=== PATIENT | male | born 1985 | race Caucasian/White ===

== ENCOUNTER 2023-10-28 17:24 | Inpatient (IN) | payer MEDICARE, OTHER ==
[~2023-10-28] VITALS: Ht 167.6 cm; Wt 95.3 kg
[2023-10-28 18:18] LABS: BASOPHILS # (AUTO) 0.3 K/uL (0.0-0.2); HEMATOCRIT 40 % (39-51); HEMOGLOBIN 13.8 g/dL (13.5-17.5); LYMPHOCYTES # (AUTO) 1.7 K/uL (0.8-4.8); MEAN CORPUSCULAR HEMOGLOBIN 27 PG (26.0-33.0); MEAN CORPUSCULAR HGB CONC 35 g/dl (31.0-36.0); MEAN CORPUSCULAR VOLUME 76 fL (80-96); MONOCYTES # (AUTO) 0.5 K/uL (0.1-1.30); MONOCYTES % (AUTO) 8.1 % (2.0-12.0); NEUTROPHILS # (AUTO) 4.1 K/uL (1.8-8.9); NEUTROPHILS % (AUTO) 60.7 % (43.0-81.0); PLATELET COUNT (AUTO) 241 K/uL (150-450); RED BLOOD CELL COUNT(AUTO) 5.19 MIL/uL (4.5-6.0); RED CELL DISTRIBUTION WIDTH 14.8 % (11.5-15.0); WHITE BLOOD COUNT (AUTO) 6.7 K/uL (4.3-11.0)
[2023-10-28 18:20] LABS: BASOPHILS % (AUTO) 5.2 % (0.0-2.0)
[2023-10-28] MEDS ORDERED: LORAZEPAM 1 MG TABLET ONE (18:32)
[2023-10-28] MEDS: LORAZEPAM 1 MG TABLET PO ONE (18:35)
[2023-10-28 18:40] LABS: ACETAMINOPHEN 0 ug/ml (10-30); ALANINE AMINOTRANSFERASE 30 U/L (12-78); ALBUMIN 3.6 g/dL (3.4-5.0); ALCOHOL, BLOOD < 3 mg/dL (0-10); ALKALINE PHOSPHATASE 52 U/L (46-116); ASPARTATE AMINOTRANSFERASE 15 U/L (15-37); BILIRUBIN,DIRECT 0.1 mg/dL (0.0-0.2); BILIRUBIN,TOTAL 0.2 mg/dL (0.2-1.0); CARBON DIOXIDE 24 mmol/L (21-32); CHLORIDE 104 mmol/L (98-107); CREATININE 1.1 mg/dL (0.6-1.3); GLUCOSE 144 mg/dL (74-106); SALICYLATE 1.1 mg/dL (2.8-20.0); SODIUM SERUM 136 mmol/L (136-145); TOTAL PROTEIN, SERUM 7.5 g/dL (6.4-8.2); UREA NITROGEN, BLOOD 12 mg/dL (7-18)
[2023-10-28] MEDS ORDERED: HYDR25CA PO (18:49)
[2023-10-28] MEDS ORDERED: DIVA250T4 PO (18:49)
[2023-10-28] MEDS ORDERED: METO50TA16 PO (18:49)
[2023-10-28] MEDS ORDERED: MAGN400O6 PO (18:49)
[2023-10-28] MEDS ORDERED: ACET325T53 PO (18:49)
[2023-10-28] MEDS ORDERED: ALBU18HF2 IH (18:49)
[2023-10-28] MEDS ORDERED: NA P133E RC (18:49)
[2023-10-28] MEDS ORDERED: BIMA2.5D5 EACHEYE (18:49)
[2023-10-28] MEDS ORDERED: BISA10SU11 RC (18:49)
[2023-10-28] MEDS ORDERED: CLOZ200T24 PO (18:49)
[2023-10-28 18:51] LABS: NT-PRO BNP 24 pg/mL (0-125)
[2023-10-28 19:09] LABS: INR 1.12 (0.91-1.10); PARTIAL THROMBOPLASTIN TIME 28.5 SEC (24.3-34.3); PROTHROMBIN TIME 11.8 SECS (9.2-11.1)
[2023-10-28 20:07] LABS: APPEARANCE,URINE CLEAR (CLEAR); BILIRUBIN,URINE NEGATIVE (NEGATIVE); BLOOD, URINE NEGATIVE Ery/uL (NEGATIVE); COLOR,URINE YELLOW (YELLOW); KETONES,URINE NEGATIVE (NEGATIVE); LEUKOCYTE ESTERASE ,URINE NEGATIVE (NEGATIVE); NITRITE, URINE NEGATIVE (NEGATIVE); PROTEIN,URINE NEGATIVE (NEGATIVE); UGLUCOSE NEGATIVE (NEGATIVE); UROBILINOGEN,URINE 0.2 EU/dL (0.2)
[2023-10-28 20:39] LABS: AMPHETAMINE, URINE NEGATIVE (NEGATIVE); BARBITURATE, URINE NEGATIVE (NEGATIVE); BENZODIAZEPINE, URINE NEGATIVE (NEGATIVE); CANNABINOID, URINE NEGATIVE (NEGATIVE); COCCAINE, URINE NEGATIVE (NEGATIVE); OPIATE, URINE NEGATIVE (NEGATIVE); PHENCYCLIDINE SCREEN,URINE NEGATIVE (NEGATIVE)
[2023-10-28] MEDS ORDERED: MORPHINE SULFATE INJ 2 MG/ML DISP.SYRIN IV PRN (22:30)
[2023-10-28] MEDS ORDERED: ACETAMINOPHEN 325 MG TABLET PO PRN (22:30)
[2023-10-28] MEDS ORDERED: ONDANSETRON HCL/PF 4 MG/2 ML VIAL IVP PRN (22:30)
[2023-10-28] MEDS ORDERED: ALBUTEROL FS 2.5 MG/0.5 ML VIAL.NEB NEB PRN (22:30)
[2023-10-29] MEDS ORDERED: IPRATROPIUM/ALBUTEROL INHALER IH SCH
[2023-10-29 06:55] LABS: ALBUMIN 3.2 g/dL (3.4-5.0); BILIRUBIN,TOTAL 0.3 mg/dL (0.2-1.0); MAGNESIUM 2.1 mg/dL (1.8-2.4); PHOSPHORUS 4.4 mg/dL (2.5-4.9); TOTAL PROTEIN, SERUM 6.9 g/dL (6.4-8.2)
[2023-10-29 06:59] LABS: HEMATOCRIT 38 % (39-51); HEMOGLOBIN 13.5 g/dL (13.5-17.5); LYMPHOCYTES % (AUTO) 44.1 % (20.0-44.0); MEAN CORPUSCULAR HEMOGLOBIN 27 PG (26.0-33.0); MEAN CORPUSCULAR HGB CONC 35 g/dl (31.0-36.0); MEAN CORPUSCULAR VOLUME 78 fL (80-96); MONOCYTES # (AUTO) 0.6 K/uL (0.1-1.30); MONOCYTES % (AUTO) 8.6 % (2.0-12.0); NEUTROPHILS # (AUTO) 3.2 K/uL (1.8-8.9); NEUTROPHILS % (AUTO) 47.3 % (43.0-81.0); PLATELET COUNT (AUTO) 227 K/uL (150-450); RED BLOOD CELL COUNT(AUTO) 4.94 MIL/uL (4.5-6.0); RED CELL DISTRIBUTION WIDTH 14.5 % (11.5-15.0); WHITE BLOOD COUNT (AUTO) 6.8 K/uL (4.3-11.0)
[2023-10-29 08:00] VITALS: BP 128/67; TEMP 97.9; O2SAT 100
[2023-10-29] MEDS: DOCUSATE SODIUM LIQ 100 MG/10 ML UDC PO SCH (09:16)
[2023-10-29] MEDS: POLYETHYLENE GLYCOL 3350 17 GM POWD.PACK PO SCH (09:16)
[2023-10-29] MEDS: METOPROLOL TARTRATE 50 MG TABLET PO SCH (09:17)
[2023-10-29] MEDS: hydrOXYzine PAMOATE 25 MG CAPSULE PO SCH (09:18)
[2023-10-29] MEDS: DIVALPROEX SODIUM 250 MG TABLET.DR PO SCH (09:18)
[2023-10-29 12:00] VITALS: BP 122/76; TEMP 98.1; O2SAT 98
[2023-10-29 16:00] VITALS: BP 150/87; TEMP 98.8; O2SAT 98
[2023-10-29] MEDS: ALBUTEROL FS 2.5 MG/3 ML VIAL.NEB NEB SCH (19:30)
[2023-10-29] MEDS: IPRATROPIUM NEB FS 0.5 MG/2.5 ML AMPUL.NEB NEB SCH (19:30)
[2023-10-29 20:00] VITALS: BP 131/83; TEMP 97.9; O2SAT 98
[2023-10-29] MEDS: HEPARIN SODIUM, PORCINE 5000 UNITS/1 ML VIAL SQ SCH (20:09)
[2023-10-29] MEDS: LATANOPROST EYE DROP 0.005% 2.5 ML BOTTLE OP SCH (21:06)
[2023-10-29] MEDS: CLOZAPINE 100 MG TABLET PO SCH (21:06)
[2023-10-29] MEDS ORDERED: BIMATOPROST 2.5 ML DROPS OP SCH (22:00)
[2023-10-30] VITALS (10 sets, daily range): BP systolic 110–142; BP diastolic 62–91; TEMP 97.5–98.2; O2SAT 96–99
[2023-10-31 01:37] VITALS: O2SAT 98
[2023-10-31 07:30] VITALS: BP 131/79; TEMP 97.8; O2SAT 98
[2023-10-31 07:34] VITALS: O2SAT 98
[2023-10-31 08:52] VITALS: BP 131/79
== END 2023-10-31 14:18 | DRG 641 ==
LOC: ER 17:24 → TELE 20:56 → MED 10-30 09:16
PROVIDERS: ADMIT Internal Medicine; ATTEND Internal Medicine
DX: R62.7 Adult failure to thrive (principal); D68.9 Coagulation defect, unspecified; F29 Unspecified psychosis not due to a substance or known physiological condition; R06.00 Dyspnea, unspecified; F20.9 Schizophrenia, unspecified; F41.9 Anxiety disorder, unspecified; Z86.16 Personal history of COVID-19; D75.89 Other specified diseases of blood and blood-forming organs; R73.9 Hyperglycemia, unspecified; Z20.822 Contact with and (suspected) exposure to COVID-19; Z68.33 Body mass index [BMI] 33.0-33.9, adult
CPT/HCPCS: 36415; 71045-TC; 80048-TC; 80053-TC; 80076-TC; 83735-TC; 83880; 84100-TC; 84484-TC; 85025-TC; 85378-TC; 85730-TC; 87081-TC; 94799-TC; G0378; G0480; J1644; Q0177

== ENCOUNTER 2024-03-29 12:58 | Emergency (ER) | payer MEDICARE, OTHER ==
[~2024-03-29] VITALS: Ht 167.6 cm; Wt 90.7 kg
[~2024-03-29 12:58] MED LIST: ACET325T53 PO; ALBU18HF2 IH; BIMA2.5D5 EACHEYE; BISA10SU11 RC; CLOZ200T24 PO; DIVA250T4 PO; HYDR25CA PO; MAGN400O6 PO; METO50TA16 PO; NA P133E RC
[2024-03-29 13:10] VITALS: BP 156/91; TEMP 98.6; O2SAT 99
--- NOTE | 2024-03-29 13:16 | NUR ---
PATIENT WAS SENT FROM UNKNOWN FACILITY BY [facility]ILLIE (REFUSED TO TELL US THE NAME OF THE FACILITY) ACCORDING TO HER, PATIENT MOTHER ANI ) WAS AWARE THAT HE IS COMING HERE. REQUESTING MEDICAL CLEARANCE TO PLACE THE PATIENT TO OTHER FACILITY.
--- NOTE | 2024-03-29 13:18 | NUR ---
URINE SAMPLE SENT TO LAB
[2024-03-29] MEDS ORDERED: LORAZEPAM INJ 2 MG/ML VIAL ONE ×2 (13:23→21:47)
[2024-03-29] MEDS ORDERED: OLANZAPINE 5 MG TABLET ONE (13:25)
[2024-03-29] MEDS: OLANZAPINE ZYDIS 5 MG TAB.RAPDIS PO ONE (13:28)
[2024-03-29] MEDS: LORAZEPAM INJ 2 MG/ML VIAL IVP ONE (13:35)
[2024-03-29] MEDS: IV NS 0.9% 500 ML BAG IV ONE (13:35)
--- NOTE | 2024-03-29 13:35 | NUR ---
BLOOD DRAWN AND SENT TO LAB
[2024-03-29 14:06] LABS: HEMATOCRIT 39 % (39-51); HEMOGLOBIN 13.3 g/dL (13.5-17.5); LYMPHOCYTES # (AUTO) 1.8 K/uL (0.8-4.8); LYMPHOCYTES % (AUTO) 27.7 % (20.0-44.0); MEAN CORPUSCULAR HEMOGLOBIN 27 PG (26.0-33.0); MEAN CORPUSCULAR HGB CONC 35 g/dl (31.0-36.0); MEAN CORPUSCULAR VOLUME 78 fL (80-96); MONOCYTES # (AUTO) 0.4 K/uL (0.1-1.30); MONOCYTES % (AUTO) 6.7 % (2.0-12.0); NEUTROPHILS # (AUTO) 4.2 K/uL (1.8-8.9); NEUTROPHILS % (AUTO) 65.6 % (43.0-81.0); PLATELET COUNT (AUTO) 207 K/uL (150-450); RED BLOOD CELL COUNT(AUTO) 4.96 MIL/uL (4.5-6.0); RED CELL DISTRIBUTION WIDTH 14.3 % (11.5-15.0); WHITE BLOOD COUNT (AUTO) 6.5 K/uL (4.3-11.0)
[2024-03-29 14:11] LABS: APPEARANCE,URINE CLEAR (CLEAR); BILIRUBIN,URINE NEGATIVE (NEGATIVE); BLOOD, URINE TRACE-INTA Ery/uL (NEGATIVE); COLOR,URINE YELLOW (YELLOW); KETONES,URINE 1+ mg/dL (NEGATIVE); LEUKOCYTE ESTERASE ,URINE NEGATIVE (NEGATIVE); NITRITE, URINE NEGATIVE (NEGATIVE); PROTEIN,URINE NEGATIVE (NEGATIVE); UGLUCOSE NEGATIVE (NEGATIVE); UROBILINOGEN,URINE 0.2 EU/dL (0.2)
[2024-03-29 14:21] LABS: ADD URINE CULTURE NO; BACTERIA,URINE Rare /HPF (None Seen); RBC,URINE 0-2 /HPF (0-2); WBC,URINE 0-2 /HPF (0-3)
[2024-03-29 14:22] LABS: SQUAMOUS EPITHELIAL CELL,UR None Seen /HPF (None Seen)
[2024-03-29 14:30] LABS: CALCIUM, SERUM 9.3 mg/dL (8.5-10.1); CARBON DIOXIDE 29 mmol/L (21-32); CHLORIDE 104 mmol/L (98-107); CREATININE 0.9 mg/dL (0.6-1.3); GLUCOSE 126 mg/dL (74-106); POTASSIUM 3.4 mmol/L (3.5-5.1); SODIUM SERUM 139 mmol/L (136-145); UREA NITROGEN, BLOOD 9 mg/dL (7-18)
--- NOTE | 2024-03-29 14:30 | NUR ---
SERVE LUNCH ATE WITH APPETITE
[2024-03-29 14:43] LABS: ALANINE AMINOTRANSFERASE 37 U/L (12-78); ALBUMIN 3.5 g/dL (3.4-5.0); ALCOHOL, BLOOD < 3 mg/dL (0-10); ALKALINE PHOSPHATASE 47 U/L (46-116); ASPARTATE AMINOTRANSFERASE 21 U/L (15-37); BILIRUBIN,DIRECT 0.1 mg/dL (0.0-0.2); BILIRUBIN,TOTAL 0.3 mg/dL (0.2-1.0); TOTAL PROTEIN, SERUM 7.1 g/dL (6.4-8.2)
[2024-03-29 14:45] LABS: ACETAMINOPHEN 0 ug/ml (10-30)
[2024-03-29 14:53] LABS: AMPHETAMINE, URINE NEGATIVE (NEGATIVE); BARBITURATE, URINE NEGATIVE (NEGATIVE); BENZODIAZEPINE, URINE NEGATIVE (NEGATIVE); CANNABINOID, URINE NEGATIVE (NEGATIVE); COCCAINE, URINE NEGATIVE (NEGATIVE); OPIATE, URINE NEGATIVE (NEGATIVE); PHENCYCLIDINE SCREEN,URINE NEGATIVE (NEGATIVE)
--- NOTE | 2024-03-29 18:47 | NUR ---
CALLED [facility] ETA 60 MINS.
--- NOTE | 2024-03-29 19:06 | NUR ---
COVID SWAB COLLECTED AND SENT
--- NOTE | 2024-03-29 19:55 | NUR ---
[facility] CRISIS TEAM AT PT'S BEDSIDE FOR EVAL
--- NOTE | 2024-03-29 21:29 | NUR ---
PT ACCEPTED TO [facility] UNDER DR CHANDLER GOING TO [facility] - [facility] # FOR REPORT - [phone] AWAITING CALL BACK FOR MED [facility] BLS ETA
--- NOTE | 2024-03-29 21:36 | NUR ---
[facility] CALLED FOR BLS GOING TO [facility] PER DISPATCH - ETA 1.5 HOURS
[2024-03-29] MEDS: LORAZEPAM INJ 2 MG/ML VIAL IV ONE (21:52)
--- NOTE | 2024-03-29 22:05 | NUR ---
CORRECT # FOR REPORT [phone]
--- NOTE | 2024-03-29 22:14 | NUR ---
REPORT GIVEN TO [facility] ([phone]) [facility]
--- NOTE | 2024-03-30 00:11 | NUR ---
Patient transported to [facility] by ambulance in stable condition. Written and verbal after care instructions given. Patient verbalizes understanding of instruction. IV removed. Catheter intact and site benign. Pressure and 4x4 applied to site. No bleeding noted.
--- NOTE | 2024-03-30 00:17 | NUR ---
APA CREW AT BEDSIDE
--- NOTE | 2024-03-30 00:45 | NUR ---
UPDATED ANI (MOTHER) [phone] REGARDING PT TRANSFERRING TO [facility]
== END 2024-03-30 00:36 ==
LOC: ER 13:05
DX: F41.0 Panic disorder [episodic paroxysmal anxiety] (principal); R00.2 Palpitations; F41.1 Generalized anxiety disorder; F20.9 Schizophrenia, unspecified; Z20.822 Contact with and (suspected) exposure to COVID-19
CPT/HCPCS: 99291; 96374; 93005 ×2; 71045; 96376; 85025; 80048; 80076; 81001; 36415; 87426; 80143; 80320; 80307; J2060 ×2; J7040; G0480